=== PATIENT | male | born 1935 | race Caucasian/White ===

== ENCOUNTER → 2016-07-28 | Outpatient (CLI) | payer MEDICARE, OTHER ==
--- NOTE | ~2016-07-28 | ECH ---
Transthoracic Echocardiography Report (TTE) Demographics Patient Name LINK LION Date of Study 07/28/2016 Patient Number [id number] Visit Number [id number] Date of 1935 Room Number Accession Number [id number] Gender Male Age 81 year(s) Referring Ritesh Gonsales Brand Analyst Pepper Mccann [facility] Physician Physician Irma Dowling MD Component Prep Operator Physician [employer] Ordering Physician Ritesh Gonsales MD/MLP Nurse Stress Operations And Maintenance Specialist Conclusions Contractility Score Summary Normal Left Ventricular contractility was noted. Summary Apical and subcostal images adequate quality, parasternal view fair quality. The estimated left ventricular ejection fraction is 65%. Mild left ventricular hypertrophy. Diastolic assessment reveals Grade I diastolic dysfunction. There is mild aortic regurgitation by color Doppler. Mild tricuspid regurgitation by color Doppler. There is mild pulmonary hypertension. The pulmonary pressure (RVSP) is 45mmHg. The right atrium is mildly dilated. Recommendation The patient will be given the results of this study by the physician who ordered the exam. Procedure Type of Study TTE procedure:Echo Complete SF. Procedure Date Date: 07/28/2016 Start: 12:47 PM Technical Quality: Fair due to body habitus. Indications:Bilateral lower extremity edema. Appropriate Use Criteria: 9 Height: 71 inches Weight: 270 pounds BSA: 2.4 m Rhythm: Within normal limits HR: 68 bpm BP: 150/76 mmHg M-Mode/2D Measurements LV Diastolic Dimension: 3.94 cm LV Systolic Dimension: 2.45 cm LV Septum Diastolic: 1.16 cm LV PW Diastolic: 1.09 cm AO Root Dimension: 2.93 cm Cardiac Output: 4.2 l/min LA Dimension: 4.67 cm Cardiac Index: 1.75 l/min*m LA volume index: 22 ml/m LVOT: 1.89 cm RV Base: 4.87 cm LVOT VTI: 22.03 cm RV Mid: 3.2 cm LV Stroke volume: 61.77 ml RV Length: 7.2 cm LV Stroke volume index: 25.74 ml/m TAPSE: 2.15 cm TDI-S': 0.9 cm/s Doppler Measurements AV Peak Velocity: 1.4 m/s MV Peak E-Wave: 0.76 m/s AV Peak Gradient: 7.84 mmHg MV Peak A-Wave: 0.87 m/s AV Mean Gradient: 4.94 mmHg MV E/A Ratio: 0.88 LVOT Peak Velocity: 0.88 m/s MV P1/2t: 52.5 msec AV Area (Continuity):2.06 cm AV P1/2t: 545.6 msec TR Velocity:3.15 m/s MV Deceleration Time: 181.2 msec TR Gradient:39.57 mmHg MV Area (PHT): 4.19 cm Estimated RAP:5 mmHg Estimated RVSP: 45 mmHg Estimated PASP: 44.57 mmHg RA Area: 21.95 cm Findings Left Ventricle The left ventricle is normal in size . Mild left ventricular hypertrophy. Diastolic assessment reveals Grade I diastolic dysfunction. Right Ventricle Normal right ventricle structure and function. Left Atrium Normal left atrial size by left atrial volume index. Right Atrium The right atrium is mildly dilated. Mitral Valve Normal mitral valve structure and function. Aortic Valve The aortic valve was not well imaged. There is mild aortic regurgitation by color Doppler. Tricuspid Valve Normal tricuspid valve structure and function. Mild tricuspid regurgitation by color Doppler. There is mild pulmonary hypertension. The pulmonary pressure (RVSP) is 45mmHg. Pulmonic Valve The pulmonic valve is not well visualized. Pericardial Effusion No evidence of pericardial effusion. Miscellaneous Visualized portions of the aortic root and ascending aorta appear normal in size. Pleural Effusion No evidence of pleural effusion. Contractility Score LV regional wall motion:(0-Non visualized 1-Normal 2-Hypokinesis 3-Akinesis 4-Dyskinesis 5-Aneurysm) Signature
== END | disposition home or self-care (01) ==
LOC: CARD 12:27
DX: R60.0 Localized edema (principal); I27.2 Other secondary pulmonary hypertension; I07.1 Rheumatic tricuspid insufficiency; I51.7 Cardiomegaly